=== PATIENT | female | born 2000 | race Caucasian/White ===

== ENCOUNTER 2024-01-24 17:36 | Emergency (ER) | payer MEDICAID ==
[~2024-01-24] VITALS: Ht 160 cm; Wt 59.0 kg
[2024-01-24 17:36] VITALS: BP_SYST 121; PULSE 107; RESP 18; TEMP 97.7; O2SAT 99
[~2024-01-24 17:36] MED LIST: ACET-2634 PO; ONDA-8 TL
[2024-01-24] MEDS: KETOROLAC TROMETHAMINE 60 MG/2 ML VIAL IM ONE (20:33)
[2024-01-24] MEDS ORDERED: NAPR-690 PO (20:43)
[2024-01-24 20:47] VITALS: BP_SYST 122; PULSE 99; RESP 18; TEMP 97.7; O2SAT 99
== END 2024-01-24 20:47 | disposition home or self-care (01) ==
LOC: SED 17:36
DX: S33.5XXA Sprain of ligaments of lumbar spine, initial encounter (principal); Z79.899 Other long term (current) drug therapy; X50.0XXA Overexertion from strenuous movement or load, initial encounter; X50.9XXA Other and unspecified overexertion or strenuous movements or postures, initial encounter; Y93.89 Activity, other specified; Y92.89 Other specified places as the place of occurrence of the external cause; Y99.8 Other external cause status
CPT/HCPCS: 99283; 72110; 96372; J1885